=== PATIENT | female | born 1970 | race Caucasian/White ===

== ENCOUNTER 2016-11-06 21:47 | Emergency (ER) | payer BC ==
--- NOTE | 2016-11-06 23:41 | RAD ---
INDICATION: Pain and swelling x2 weeks of the right wrist COMPARISON: None. TECHNIQUE: 4 views right wrist. REPORT: The visualized bones are properly aligned and well corticated. The joint spaces are normal.There is no fracture, dislocation or other focal osseous abnormality. Overlying the soft tissue dorsal lateral to the distal ulna and carpal bones there is lucency that could be seen in the setting of soft tissue infiltration. No foreign bodies identified. IMPRESSION: Radiographic findings could be consistent with infiltration of the soft tissues surrounding the wrist without identifiable foreign body or underlying bony pathology. If the patient's symptoms persist, follow-up imaging is recommended.
[2016-11-07] MEDS ORDERED: Ibuprofen TAB* 600 MG PO ONE (00:02)
[2016-11-07 00:14] VITALS: BP 114/78
--- NOTE | 2016-11-26 23:36 | ED ---
Jeremy Selby Benjamin, scribed for Mike Ewing MD on 11/07/16 at 0004 . Upper Extremity Pain - HPI Summary HPI Summary: 46yo female with a right wrist injury 2 weeks ago came to ED for evaluation since her wrist has been sore and has been bothering her when she lift heavy objects. Pt noted swelling. Full ROM intact, but with pain. - History of Current Complaint Chief Complaint: EDExtremityUpper Stated Complaint: RIGHT WRIST INJURY Time Seen by Provider: 11/06/16 23:59 Hx Obtained From: Patient Mechanism Of Injury: Twisted Onset/Duration: Started Weeks Ago - 2 weeks, Traumatic, Still Present Timing: Constant Severity Initially: Mild Severity Currently: Mild Pain Location: Wrist - right Character: Aching, Throbbing Aggravating Factor(s): Movement, Lifting, Flexion, Abduction, Adduction Alleviating Factor(s): Ice Associated Signs & Symptoms: Positive: Swelling - Allergies/Home Medications Allergies/Adverse Reactions: Allergies Allergy/AdvReac Type Severity Reaction Status Date / Time Penicillins Allergy Unknown Verified 11/06/16 21:53 Reaction Details PMH/Surg Hx/FS Hx/Imm Hx Previously Healthy: Yes Infectious Disease History: No Infectious Disease History: Denies: Traveled Outside the [place] in Last 30 Days - Family History Known Family History: Negative: Cardiac Disease, Hypertension, Diabetes - Social History Occupation: Employed Full-time Lives: With Family Alcohol Use: Occasionally Substance Use Type: Reports: None Smoking Status (MU): Never Smoked Tobacco Review of Systems Constitutional: Negative Eyes: Negative ENT: Negative Cardiovascular: Negative Respiratory: Negative Gastrointestinal: Negative Genitourinary: Negative Positive: Arthralgia - right wrist Skin: Negative Neurological: Negative Psychological: Normal All Other Systems Reviewed And Are Negative: Yes Physical Exam Triage Information Reviewed: Yes Vital Signs On Initial Exam: Initial Vitals Temp Pulse Resp BP Pulse Ox 98.2 F 91 18 108/77 99 11/06/16 21:54 11/06/16 21:54 11/06/16 21:54 11/06/16 21:54 11/06/16 21:54 Vital Signs Reviewed: Yes Appearance: Positive: Well-Appearing, No Pain Distress Skin: Positive: Warm Head/Face: Positive: Normal Head/Face Inspection ENT: Positive: Hearing grossly normal Respiratory/Lung Sounds: Positive: Breath Sounds Present Musculoskeletal: Positive: Other - rt wrist mild diffuse tenderness, no deformity, from, nvi Diagnostics - Vital Signs Vital Signs Temp Pulse Resp BP Pulse Ox 11/06/16 21:54 98.2 F 91 18 108/77 99 - Laboratory Lab Statement: Any lab studies that have been ordered have been reviewed, and results considered in the medical decision making process. - Radiology Right Wrist XR Xray Interpretation: Positive (See Comments) - IMPRESSION: Radiographic findings could be consistent with infiltration of the soft tissues surrounding the wrist without identifiable foreign body or underlying bony pathology. If the patient's symptoms persist, follow-up imaging is recommended. Radiology Interpretation Completed By: Radiologist Course/Dx - Diagnoses Provider Diagnoses: Right wrist sprain Discharge - Discharge Plan Condition: Stable Disposition: HOME Patient Education Materials: Wrist Sprain (ED) Referrals: Jp Clements MD [Primary Care Provider] - The documentation as recorded by the Jeremy abarca Benjamin accurately reflects the service I personally performed and the decisions made by me, Mike Ewing MD.
== END 2016-11-07 00:12 | disposition home or self-care (01) ==
LOC: ED 21:47
DX: S63.501A Unspecified sprain of right wrist, initial encounter (principal); X58.XXXA Exposure to other specified factors, initial encounter; Y92.9 Unspecified place or not applicable; Z88.0 Allergy status to penicillin
CPT/HCPCS: 99282; A9270-GY

== ENCOUNTER 2017-11-12 12:58 | Emergency (ER) | payer BC ==
[2017-11-12 14:24] LABS: ABS Basophils 0 10^3/ul (0-0.2); ABS Eosinophils 0.1 10^3/ul (0-0.6); ABS Lymphocytes 1.9 10^3/ul (1.0-4.8); ABS Monocytes 0.7 10^3/ul (0-0.8); ABS Neutrophils 5.1 10^3/ul (1.5-7.7); ABS Nucleated RBC 0 10^3/ul; Eosinophil % 0.8 % (0-6); Hematocrit 41 % (35-47); Hemoglobin 13.5 g/dl (12.0-16.0); Lymphocyte % 24.4 % (25-47); Mean Corpuscular HGB Conc 33 g/dl (31-36); Mean Corpuscular Hemoglobin 29 pg (27-31); Mean Corpuscular Volume 87 fL (80-97); Mean Platelet Volume 7.9 um3 (7.4-10.4); Nucleated Red Blood Cells % 0; Platelet Count 243 10^3/ul (150-450); Red Blood Count 4.68 10^6/ul (4.0-5.4); Red Cell Distribution Width 13 % (10.5-15); White Blood Count 7.8 10^3/ul (3.5-10.8)
[2017-11-12 14:45] LABS: EGFR Non-African American 98.6 (>60)
[2017-11-12] MEDS ORDERED: NS 0.9% 1000 ML* 1,000 ML IV ONE (15:46)
[2017-11-12] MEDS ORDERED: Morphine INJ* 10 MG/ML 1 ML CARPUJECT IV ONE (15:46)
[2017-11-12] MEDS ORDERED: Metoclopramide IV* 5 MG/ML 2 ML VIAL IV ONE (15:46)
[2017-11-12] MEDS ORDERED: Morphine VIAL* 4 MG/ML VIAL (1 ml vial) IV ONE (16:11)
[2017-11-12] MEDS ORDERED: Iohexol 300* (CONTRAST) 10 ML SDV IV ONE (16:17)
[2017-11-12 18:07] LABS: Urine Appearance Cloudy; Urine Blood Negative (Negative); Urine Color Yellow; Urine Ketones Trace (Negative); Urine Protein Negative (Negative); Urine Specific Gravity 1.009 (1.010-1.030); Urine Urobilinogen Negative (Negative)
--- NOTE | 2017-11-12 18:50 | ED ---
Sarabjit Selby Julia, scribed for Genaro Stanton on 11/12/17 at 1543 . Abdominal Pain/Female - HPI Summary HPI Summary: This patient is a 47 year old F presenting to [facility] with a chief complaint of lower abdominal pain and nausea since 09:00 this morning. Patient denies vomiting and diarrhea.The patient rates the pain 10/10 in severity. PMHx of colitis. - History of Current Complaint Chief Complaint: EDAbdPain Stated Complaint: ABD PAIN Time Seen by Provider: 11/12/17 15:35 Hx Obtained From: Patient Onset/Duration: Lasting Hours Timing: Constant Severity Currently: Severe Pain Intensity: 10 Pain Scale Used: 0-10 Numeric Location: Other - lower Associated Signs and Symptoms: Positive: Nausea. Negative: Vomiting, Diarrhea Allergies/Adverse Reactions: Allergies Allergy/AdvReac Type Severity Reaction Status Date / Time Penicillins Allergy Unknown Verified 11/12/17 13:16 Reaction Details Home Medications: Home Medications Lisdexamfetamine(NF) [Vyvanse(NF)] 30 mg PO DAILY 11/12/17 [History Confirmed ] PMH/Surg Hx/FS Hx/Imm Hx Cardiovascular History: Denies: Hx Hypertension GI History: Reports: Other GI Disorders - colitis Infectious Disease History: No Infectious Disease History: Denies: Traveled Outside the [place] in Last 30 Days - Family History Known Family History: Negative: Cardiac Disease, Hypertension, Diabetes - Social History Alcohol Use: Occasionally Substance Use Type: Reports: None Smoking Status (MU): Never Smoked Tobacco Review of Systems Negative: Fever Positive: Abdominal Pain, Nausea. Negative: Vomiting, Diarrhea All Other Systems Reviewed And Are Negative: Yes Physical Exam - Summary Physical Exam Summary: Appearance: Well appearing, Skin: warm, dry, reflects adequate perfusion Head/face: normal Eyes: EOMI, GEORGINA ENT: normal Neck: supple, non-tender Respiratory: CTA, breath sounds present Cardiovascular: RRR, pulses symmetrical Abdomen: RLQ tenderness, soft Bowel: present Musculoskeletal: normal, strength/ROM intact Neuro: normal, sensory motor intact, A&Ox3 Triage Information Reviewed: Yes Vital Signs On Initial Exam: Initial Vitals Temp Pulse Resp BP Pulse Ox 98.9 F 93 19 128/88 100 11/12/17 13:12 11/12/17 13:12 11/12/17 13:12 11/12/17 13:12 11/12/17 13:12 Vital Signs Reviewed: Yes Diagnostics - Vital Signs Vital Signs Temp Pulse Resp BP Pulse Ox 11/12/17 15:19 97.7 F 69 16 126/81 11/12/17 13:12 98.9 F 93 19 128/88 100 - Laboratory Lab Results: Lab Results 11/12/17 11/12/17 11/12/17 Range/Units 14:13 14:13 14:13 WBC 7.8 (3.5-10.8) 10^3/ul RBC 4.68 (4.0-5.4) 10^6/ul Hgb 13.5 (12.0-16.0) g/dl Hct 41 (35-47) % MCV 87 (80-97) fL MCH 29 (27-31) pg MCHC 33 (31-36) g/dl RDW 13 (10.5-15) % Plt Count 243 (150-450) 10^3/ul MPV 7.9 (7.4-10.4) um3 Neut % (Auto) 65.7 (38-83) % Lymph % (Auto) 24.4 L (25-47) % Gosper % (Auto) 8.7 H (0-7) % Eos % (Auto) 0.8 (0-6) % Baso % (Auto) 0.4 (0-2) % Absolute Neuts (auto) 5.1 (1.5-7.7) 10^3/ul Absolute Lymphs (auto) 1.9 (1.0-4.8) 10^3/ul Absolute Monos (auto) 0.7 (0-0.8) 10^3/ul Absolute Eos (auto) 0.1 (0-0.6) 10^3/ul Absolute Basos (auto) 0 (0-0.2) 10^3/ul Absolute Nucleated RBC 0 10^3/ul Nucleated RBC % 0 Sodium 135 L (139-145) mmol/L Potassium 4.0 (3.5-5.0) mmol/L Chloride 102 (101-111) mmol/L Carbon Dioxide 28 (22-32) mmol/L Anion Gap 5 (2-11) mmol/L BUN 13 (6-24) mg/dL Creatinine 0.65 (0.51-0.95) mg/dL Est GFR ( Amer) 126.8 (>60) Est GFR (Non-Af Amer) 98.6 (>60) BUN/Creatinine Ratio 20.0 (8-20) Glucose 97 (70-100) mg/dL Lactic Acid 1.2 (0.5-2.0) mmol/L Calcium 9.2 (8.6-10.3) mg/dL Total Bilirubin 0.80 (0.2-1.0) mg/dL AST 15 (13-39) U/L ALT 7 (7-52) U/L Alkaline Phosphatase 43 (34-104) U/L C-Reactive Protein < 1.00 (< 5.00) mg/L Total Protein 7.3 (6.4-8.9) g/dL Albumin 4.4 (3.2-5.2) g/dL Globulin 2.9 (2-4) g/dL Albumin/Globulin Ratio 1.5 (1-3) Lipase 14 (11.0-82.0) U/L Result Diagrams: 11/12/17 14:13 11/12/17 14:13 Lab Statement: Any lab studies that have been ordered have been reviewed, and results considered in the medical decision making process. Abdominal Pain Fem Course/Dx - Course Course Of Treatment: 7 year old F presenting to [facility] with a chief complaint of lower abdominal pain and nausea since 09:00 this morning. Patient denies vomiting and diarrhea.The patient rates the pain 10/10 in severity. PMHx of colitis. Bloodwork and UA are unremarkable. Patient is given Morphine, Reglan, and IV fluids. A CT A/P is ordered. Patient is signed out to Dr. Castellano awaing CT A/P. - Diagnoses Differential Diagnosis: Positive: Appendicitis, Constipation, Diverticulitis, Pancreatitis, Renal Colic, Urinary Tract Infection Provider Diagnoses: Colitis, Abdominal pain Discharge - Sign-Out/Discharge Documenting (check all that apply): Sign-Out Patient Signing out patient TO: Suzanna Castellano - Discharge Plan Referrals: Jp Clements MD [Primary Care Provider] - The documentation as recorded by the Sarabjit abarca Julia accurately reflects the service I personally performed and the decisions made by , Genaro Stanton.
--- NOTE | 2017-11-12 19:04 | RAD ---
CLINICAL HISTORY: Right lower quadrant tenderness COMPARISON: None TECHNIQUE: Multiple contiguous axial CT scans were obtained of the abdomen and pelvis after the administration of intravenous contrast. Coronal and sagittal multiplanar reformations are submitted for review. Oral contrast was administered. Delayed images were obtained through the abdomen. FINDINGS: LUNG BASES: The lung bases are clear. LIVER: The liver is normal in shape, size, contour, and attenuation. BILE DUCTS: There is no intrahepatic or extrahepatic biliary dilatation. GALLBLADDER: The gallbladder is normal, without pericholecystic inflammatory change. PANCREAS: The pancreas is normal, without mass or ductal dilatation. SPLEEN: Normal in size and appearance. UPPER GI TRACT: Evaluation of the gastrointestinal tract is limited by incomplete gastric distention. The upper GI tract is unremarkable. SMALL BOWEL AND MESENTERY: The small bowel is normal in contour, course, and caliber. There is no obstruction or dilatation. COLON: The colon is normal in contour, course, caliber. There is no pericolonic inflammatory change. There is large amount of stool throughout the colon. There is a tubular, vermiform, hollow viscus that is blind ending, and originates from the cecum, consistent with a normal appendix. There is no periappendiceal inflammatory change. This is best seen on coronal images 38 through 50. ADRENALS: Normal bilaterally. KIDNEYS: The kidneys are normal in shape, size, contour, and axis. There is no hydronephrosis or nephrolithiasis. BLADDER: The bladder is smooth in contour. PELVIC ORGANS: There is a 2 cm right ovarian cyst. The uterus and adnexa are otherwise grossly normal for technique. AORTA: The aorta is normal. IVC: Unremarkable LYMPH NODES: There is no lymphadenopathy by size criteria. ABDOMINAL WALL: There is no evidence for abdominal wall hernia. BONES AND SOFT TISSUES: Degenerative changes are noted at L5-S1. OTHER: None IMPRESSION: 1. NORMAL APPENDIX. 2. LARGE AMOUNT STOOL WITHIN THE COLON. 3. 2 CM RIGHT OVARIAN CYST.
[2017-11-12 19:28] VITALS: BP 114/78
[2017-11-12] MEDS ORDERED: Bisacodyl SUPP* 10 MG SUPP PR ONE (19:33)
[2017-11-12] MEDS ORDERED: Magnesium CITRATE* 300 ML BTL PO ONE (19:33)
--- NOTE | 2017-11-12 20:08 | ED ---
I, Rosalinda Blandon, scribed for Suzanna Castellano MD on 11/12/17 at 1944 . Progress - Progress Note Progress Note: Patient signed out from Dr. Stanton. Upon evaluation, pt states that her pain has gone away with the morphine. Discussed discharge plan, pt agreeable to go home, take laxatives, increase fiber intake. - EKG/XRAY/CT CT: LARGE AMOUNT STOOL WITHIN THE COLON. ED physician has reviewed this report Course/Dx - Course Course Of Treatment: 47 year old F, signed out from Dr. Stanton, complains of lower abdominal pain and nausea since 09:[address] A/P shows large amount of stool. Pt agreeable to take laxatives, will be discharged home. Follow up from primary care provider in 3days. - Diagnoses Provider Diagnoses: Constipation Discharge - Sign-Out/Discharge Documenting (check all that apply): Discharge/Admit/Transfer - Discharge Plan Condition: Stable Disposition: HOME Patient Education Materials: Constipation (ED), Abdominal Pain (ED) Referrals: Jp Clements MD [Primary Care Provider] - 3 Days Additional Instructions: Take laxatives as discussed. Increase your fiber intake. Follow up with your primary care provider in 3 days. Return to the Emergency Department for any new or worsening symptoms. The documentation as recorded by the Barber abarca Tiffany accurately reflects the service I personally performed and the decisions made by me, Suzanna Castellano MD.
== END 2017-11-12 19:57 | disposition home or self-care (01) ==
LOC: ED 12:58
DX: K52.9 Noninfective gastroenteritis and colitis, unspecified (principal); Z87.19 Personal history of other diseases of the digestive system; Z88.0 Allergy status to penicillin
CPT/HCPCS: 36415; 74177; 80053; 81003; 83605; 83690; 84484; 84702; 85025; 86140; 96360; 96361; 99283; A9270-GY; J2270; J2765; Q9967

== ENCOUNTER 2018-10-27 22:44 | Emergency (ER) | payer BC ==
--- NOTE | 2018-10-27 23:59 | ED ---
Upper Extremity Pain - HPI Summary HPI Summary: Pt is a 47 y/o female who presents to the ED c/o wrist pain. Around 21:20 pt was pulling down on a window shade and the entire shade landed on her left wrist. Pt c/o swelling and pain to her left wrist, rated a 7/10 in severity. She denies any elbow pain, decreased ROM, or numbness. - History of Current Complaint Chief Complaint: EDExtremityUpper Stated Complaint: LEFT WRIST INJURY PER PT Hx Obtained From: Patient Mechanism Of Injury: Other - object fell on wrist Onset/Duration: Started Hours Ago - 21:20, Still Present Timing: Constant Severity Currently: Moderate - 7/10 Pain Location: Wrist - L Associated Signs & Symptoms: Positive: Swelling. Negative: Numbness/Tingling - Allergies/Home Medications Allergies/Adverse Reactions: Allergies Allergy/AdvReac Type Severity Reaction Status Date / Time Penicillins Allergy Unknown Verified 10/27/18 23:04 Reaction Details PMH/Surg Hx/FS Hx/Imm Hx Endocrine/Hematology History: Denies: Hx Diabetes Cardiovascular History: Denies: Hx Hypertension GI History: Reports: Other GI Disorders - colitis History: Denies: Hx Renal Disease - Surgical History Surgery Procedure, Year, and Place: Infectious Disease History: No Infectious Disease History: Denies: Traveled Outside the [place] in Last 30 Days - Family History Known Family History: Negative: Cardiac Disease, Hypertension, Diabetes - Social History Alcohol Use: Occasionally Hx Substance Use: No Substance Use Type: Reports: None Hx Tobacco Use: No Smoking Status (MU): Never Smoked Tobacco Review of Systems Positive: Arthralgia - L wrist, Edema - L wrist. Negative: Decreased ROM, Other - elbow pain Negative: Numbness All Other Systems Reviewed And Are Negative: Yes Physical Exam - Summary Physical Exam Summary: Appearance: well appearing, no pain distress Skin: warm, dry, reflects adequate perfusion Head/face: normal Eyes: EOMI, GEORGINA ENT: mucous membranes moist Neck: supple, non-tender Respiratory: CTA, breath sounds present Cardiovascular: RRR, pulses symmetrical Abdomen: non-tender, soft Bowel Sounds: present Musculoskeletal: strength/ROM intact, swelling of left radial wrist, no bony tenderness, NV intact Neuro: normal, sensory motor intact, A&Ox3 Triage Information Reviewed: Yes Vital Signs On Initial Exam: Initial Vitals Temp Pulse Resp BP Pulse Ox 98.3 F 78 16 126/85 100 10/27/18 23:00 10/27/18 23:00 10/27/18 23:00 10/27/18 23:00 10/27/18 23:00 Vital Signs Reviewed: Yes Diagnostics - Vital Signs Vital Signs Temp Pulse Resp BP Pulse Ox 10/27/18 23:00 98.3 F 78 16 126/85 100 - Laboratory Lab Statement: Any lab studies that have been ordered have been reviewed, and results considered in the medical decision making process. - Radiology Wrist XR Radiology Interpretation Completed By: ED Physician Summary of Radiographic Findings: No acute fracture. Pending official radiology report. Course/Dx - Course Course Of Treatment: X-rays of the wrist are negative. An kevan wrap was applied. Small hematoma from contusion. - Diagnoses Differential Diagnosis/HQI/PQRI: Positive: Contusion, Fracture (Closed) Provider Diagnoses: Wrist contusion, Hematoma Discharge - Sign-Out/Discharge Documenting (check all that apply): Patient Departure - Discharge Patient Received Moderate/Deep Sedation with Procedure: No - Discharge Plan Condition: Improved Disposition: HOME Patient Education Materials: Hematoma (ED) Referrals: Shama Vail DO [Primary Care Provider] - Additional Instructions: Rest, ice, Kevan wrap for compression ibuprofen or Tylenol for discomfort. Follow up with your doctor as needed. - Billing Disposition and Condition Condition: IMPROVED Disposition: Home - Attestation Statements Document Initiated by Scribe: Yes Documenting Scribe: Zoila Justice Provider For Whom Scribe is Documenting (Include Credential): Alexander Allan MD Scribe Attestation: Zoila Selby scribed for Alexander Allan MD on 10/28/18 at 0337. Scribe Documentation Reviewed: Yes Provider Attestation: The documentation as recorded by the Zoila abarca accurately reflects the service I personally performed and the decisions made by , Alexander Allan MD Status of Scribe Document: Viewed
[2018-10-28 00:05] VITALS: BP 123/82
== END 2018-10-28 00:05 | disposition home or self-care (01) ==
LOC: ED 22:44
DX: S60.212A Contusion of left wrist, initial encounter (principal); W20.8XXA Other cause of strike by thrown, projected or falling object, initial encounter; K52.9 Noninfective gastroenteritis and colitis, unspecified; Z88.0 Allergy status to penicillin
CPT/HCPCS: 99282